=== PATIENT | female | born 1965 | race Caucasian/White ===

== ENCOUNTER 2016-11-07 18:17 | Emergency (ER) | payer MEDICAID, OTHER ==
[2016-11-07 18:25] VITALS: PULSE 84; TEMP 98.1
--- NOTE | 2016-11-07 18:34 | EDPHY ---
H & P Time Seen by Provider: 11/07/16 18:33 HPI/ROS: CHIEF COMPLAINT: Low back pain. HISTORY OF PRESENT ILLNESS: This patient is a 51 year old female with a history of MS who was referred to the Emergency Department by [facility] for an exacerbation of her chronic back pain secondary to falling on the ice today. She states that her back "seized up" while walking on ice; she then tried to correct her posture causing her to fall. She does not remember any details of the fall, including if she lost consciousness during the fall or if she hit her head. Upon arrival, she complains of moderate low back pain and pain to her right upper thigh. She also reports vision changes, dizziness, and bilateral forearm paresthesias. She believes that these neurological complaints began following the fall but is not entirely sure if that is the case. She denies headache or neck pain. No additional injuries from the fall. h/o MS, not taking medications (meds don't work for her), previously on stem cell transplant list. Paresthesias not typical of her MS, especially given rapid onset, though she is unsure. No prior MRI's at [facility] (all prior MRI's out of state). Ongoing LBP after an injury at work, seeing workman's comp doc, states the pain has been out of control recently. Not taking meds for LBP. REVIEW OF SYSTEMS: Constitutional: No weakness Eyes: +visual changes, no eye pain ENT: No dental trauma Neck: No pain or injury Respiratory: No shortness of breath Cardiac: No chest pain Gastrointestinal: No abdominal pain, no vomiting Back: +low back pain Genitourinary: No hematuria Musculoskeletal: +right lateral thigh pain Skin: No lacerations Neurological: +dizziness, +bilateral arm paresthesias, no headache Past Medical/Surgical History: Multiple sclerosis, chronic back pain. Social History: Moved to [place] in February; no local PCP. Smoking Status: Never smoked Physical Exam: General Appearance: Alert, no distress Head: Atraumatic Eyes: No conjunctival erythema, PERRLA, EOMI ENT, Mouth: No hemotympanum, no oral trauma, no bony tenderness Neck: Non-tender, full range of motion without pain Respiratory: No chest wall tenderness, lungs clear bilaterally Cardiovascular: Regular rate and rhythm Abdomen: Abdomen is soft and non tender Skin: No lacerations, no abrasions Back: No midline T/L/S tenderness, lumbar paraspinous tenderness Extremities: Pelvis is stable and nontender; no extremity tenderness or deformity, full range of motion without pain Neurological: A&Ox3, normal motor function, normal sensory exam, cranial nerves intact Psychiatric: Mood and affect normal Constitutional: Initial Vital Signs Temperature (C) 36.7 C 11/07/16 18:20 Heart Rate 84 11/07/16 18:20 Respiratory Rate 20 11/07/16 18:20 Blood Pressure 137/99 H 11/07/16 18:20 O2 Sat (%) 97 11/07/16 18:20 O2 Delivery Mode Room Air O2 (L/minute) 2 Allergies/Adverse Reactions: aspirin Allergy (Verified 11/07/16 18:26) latex Allergy (Verified 11/07/16 18:26) oxycodone HCl [From Percodan] Allergy (Verified 11/07/16 18:26) oxycodone terephthalate [From Percodan] Allergy (Verified 11/07/16 18:26) silicone Allergy (Verified 11/07/16 18:26) Home Medications: Medication Instructions Recorded DULoxetine 11/07/16 Hydrocodone/APAP 5/325 [[place] 1 - 2 tab PO Q4H PRN #10 tab 11/07/16 5/325] traZODone 11/07/16 Medical Decision Making - Diagnostics Imaging: Study: MRI of the brain and cervical spine without contrast Indication: Multiple neurological complaints Results: MRI of the brain and cervical spine was obtained. The results of the study are: multiple MS lesions; recommend MRI with contrast to determine relative age of lesions. The study was read by the radiologist, Dr. Cb Schulz. I viewed the images myself on the PACS system. Study: MRI of the cervical spine with contrast Indication: Multiple neurological complaints Results: MRI of cervical spine with contrast was obtained. The results of the study are: no acute changes from previous. The study was read by the radiologist , Dr. Cb Schulz. I viewed the images myself on the PACS system. Study: X-ray of the lumbar spine Indication: Pain, trauma Results: X-ray of the lumbar spine was obtained. The results of the study are: 1. No compression fracture or pars defect. 2. Moderate severe degenerative disk and facet arthropathy at L5-S1. The study was read by the radiologist, Dr. Cb Schulz. I viewed the images myself on the PACS system. ED Course/Re-evaluation: This pt presents with a constellation of symptoms, some subacute and others acute. She does not appear in pain, though she is quite anxious and talkative. I spent quite a bit of time trying to sort out the acuity of the problems, and their possible relationship to MS vs recent/remote trauma. Ultimately, I decided that I would be unable to sort this out, and decided that MRI of the brain +/- contrast, Cspine MRI and lumbar spine Xrays would give me sufficient information to make an informed decision today. I discussed with the patient the plan for MRI of the brain and c-spine and x-ray of the lumbar spine. 1 tab PO Hydrocodone administered for pain. 2010: Lumbar spine Xrays are negative for acute fx. The patient continues to complain of LBP pain and is unable to lay flat for an MRI secondary to her low back pain. IV was established. 6mg IV morphine administered. MRI obtained. 2199: I discussed imaging results with Dr. Schulz who recommends MRI with contrast of the cervical spine given the MS lesions seen on MRI without contrast. Will proceed with this additional study. 2234: I discussed imaging results with the patient. There is no evidence of active MS lesions and no evidence of fracture/hemorrhage related to recent fall. She was thankful for the thorough evaluation and will f/u with neurology and PCP. Referrals given, as she has not yet established a PCP or neurologist in [place]. - Data Points Medications Given: Discontinued Medications Acetaminophen/Hydrocodone Bitart ([place] 5/325) 1 tab PO EDNOW ONE Stop: 11/07/16 18:56 Last Admin: 11/07/16 19:07 Dose: 1 tab Acetaminophen/Hydrocodone Bitart ([place] 5/325mg Prepack#6) 1 btl TAKEHOME EDNOW ONE Stop: 11/07/16 22:42 Last Admin: 11/07/16 23:18 Dose: 1 btl Diazepam (Valium 5 Mg Prepack#4) 1 btl TAKEHOME EDNOW ONE Stop: 11/07/16 22:42 Last Admin: 11/07/16 23:16 Dose: 1 btl Diphenhydramine HCl (Benadryl Injection) 25 mg IVP EDNOW ONE Stop: 11/07/16 22:32 Last Admin: 11/07/16 22:37 Dose: 25 mg Morphine Sulfate (Morphine) 6 mg IVP EDNOW ONE Stop: 11/07/16 20:11 Last Admin: 11/07/16 20:20 Dose: 6 mg Ondansetron HCl (Zofran) 4 mg IVP EDNOW ONE Stop: 11/07/16 20:11 Last Admin: 11/07/16 20:25 Dose: 4 mg Departure - Departure Disposition: Home, Routine, Self-Care Clinical Impression: Paresthesia, Multiple sclerosis Low back pain Qualifiers: Qualifier Code: (M54.5) Low back pain Condition: Good Instructions: Hydrocodone/Acetaminophen (By mouth), Diazepam (By mouth), Low Back Strain (ED), Paresthesia (ED), Multiple Sclerosis (DC) Additional Instructions: 1. Take [place] every 4 hours as needed for pain. 2. Take Valium every 6 hours as needed for pain and to help with sleep. 3. Follow-up with a primary care provider to address your chronic pain and any additional symptoms that persist. 4. Return to the Emergency Department with new neurological symptoms including severe headache, vision loss, new or worsening numbness, or other serious concerns. Referrals: Kun Juarez MD [Medical Doctor] - As per Instructions Prescriptions: Hydrocodone/APAP 5/325 [[place] 5/325] 1 - 2 tab PO Q4H PRN #10 tab PRN Reason: Pain, Moderate Report Scribed for: Anabell Watkins Report Scribed by: Antoinette Sharp Date of Report: 11/07/16 Time of Report: 18:34 Physician Review and Approval Statement: 11/07/16 18:34 Portions of this note were transcribed by a medical records director. I personally performed a history, physical exam, medical decision making, and confirmed accuracy of information the transcribed note.
[2016-11-07] MEDS ORDERED: HYDROCODONE/APAP 5/325 TAB PO ONE (18:55)
--- NOTE | 2016-11-07 19:37 | DX ---
Lumbar Spine, Two Views 18:51 Hours Indication: Pain Comparison: None Technique: Upright AP and lateral views. Findings: Five nonrib-bearing lumbar vertebral bodies have minimal levocurvature apex at L3. Moderat e to severe degenerative disk disease and facet arthropathy is present at L5-S1. No compression fract ure or pars defect. Remainder the disk spaces are relatively well-preserved. Impression: 1. No compression fracture or pars defect. 2. Moderate severe degenerative disk and facet arthropathy at L5-S1.
[2016-11-07] MEDS ORDERED: ONDANSETRON 4 MG/2 ML VIAL IVP ONE (20:10)
[2016-11-07] MEDS ORDERED: GADOBUTROL 10 ML VIAL IVP ONE (21:01)
[2016-11-07] MEDS ORDERED: HYDROCOD/APAP 5/325 PREPACK#6 BTL TAKEHOME ONE (22:41)
[2016-11-07] MEDS ORDERED: DIAZEPAM 5 MG PREPACK#4 BTL TAKEHOME ONE (22:41)
--- NOTE | 2016-11-07 22:52 | MR ---
MRI of the Brain (Without and With Contrast) Indication: Bilateral arm numbness. Recently fell on ice. History of multiple sclerosis. Technique: T1-weighted images were acquired axially and sagittally from the foramen magnum to the ve rtex. Axial fast inversion-recovery, fast T2-weighted, susceptibility, and diffusion-weighted axial images were obtained, without contrast. Postcontrast axial and coronal images, with the uneventful i ntravenous administration of 10 mL Gadavist contrast. Comparison: No prior imaging for comparison. Findings: Moderate volume of hyperintense periventricular and subcortical white matter disease is pr esent throughout the bilateral frontal, parietal, posterior temporal lobes, and bilateral thalami on the FLAIR and T2-weighted sequences. No enhancement of the white matter lesions on the postcontrast imaging. No white matter lesions within the cerebellum. Diffusion-weighted imaging is normal. No evidence of acute ischemia. No acute intracranial hemorrha ge, subdural hematoma, or hemosiderin deposition. The ventricular system is normal caliber and midli ne. The sagittal sinus and basivertebral arteries have normal black flow void on T2-weighted imaging and normally enhance on the postcontrast sequence. No abnormal enhancement of the leptomeninges or dura. The paranasal sinuses are clear. The orbits are normal. The bone marrow signal is normal. IMPRESSION: 1. Moderate volume of periventricular and subcortical white matter disease consistent with the patie nt's history of multiple sclerosis. No evidence of active demyelinating plaque. 2. No acute intracranial hemorrhage or evidence of ischemia. Comment: Results were discussed with Dr. Anabell Watkins at 10:30 p.m. on November 07, 2016.
--- NOTE | 2016-11-07 23:20 | MR ---
MRI Cervical Spine, Without and Without IV Contrast Indication: Bilateral arm numbness. Recent fall on ice. History of multiple sclerosis. Technique: Sagittal and coronal T2, sagittal T1, FLAIR, and postcontrast sagittal FLAIR and T1 postc ontrast sequences. Stacked axial T2 and T1 postcontrast sequences are obtained through the cervical spine. 10 mL of Gadavist was uneventfully intravenously administered. Comparison: None. Findings: The cervical spinal cord has extensive multifocal mildly hyperintense white matter disease throughout the central and dorsal lateral aspect of the cord from the level of C2 to T3. No abnorma l enhancement on the postcontrast imaging to suggest active demyelination. No spinal cord atrophy. The spinal canal is capacious. No cord compression at any level. The cervicooccipital junction is normal. Bone marrow signal is normal. No compression fracture or b one lesion. The paraspinal soft tissues are normal. The anterior and posterior longitudinal ligamen ts, ligamentum flavum, and interspinous ligament have normal signal. No evidence of ligamentous tear or paraspinal fluid collection. C2-C3: Widely patent central canal and neural foramina. Minimal disk desiccation. C3-C4: Disk desiccation and minimal broad-based disk bulge results in minimal acquired central canal narrowing. Facet hypertrophy results in mild bilateral neural foraminal stenosis. C4-C5: Widely patent central canal and neural foramina. Minimal disk dessication. C5-C6: Widely patent central canal and neural foramina. Minimal disk dessication and minimal solderer assembler ior disk bulge results in minimal acquired central canal narrowing. C6-C7: Widely patent central canal and neural foramina. Minimal disk dessication. C7-T1: Widely patent central canal and neural foramina. Minimal disk desiccation. Small bilateral perineural sheath cysts are present in the neural foramina. Impression: 1. Extensive white matter disease throughout the cervical spinal cord consistent with multiple scler osis. No evidence of active demyelination. 2. Widely patent central canal. No acute disk herniation or evidence of ligamentous injury. 3. Bilateral neural foraminal stenosis at C3-C4 due to osteophyte disk complex. Comment: Results were discussed with Dr. Anabell Watkins on November 07, 2016.
[2016-11-07 23:49] VITALS: BP 135/80; RESP 16; O2SAT 97
== END 2016-11-07 23:50 | disposition home or self-care (01) ==
DX: M54.5 Low back pain (principal); G35 Multiple sclerosis; R20.2 Paresthesia of skin; Z91.040 Latex allergy status
CPT/HCPCS: 96374; A9585; J1200; J2405

== ENCOUNTER → 2017-08-06 | Outpatient (CLI) | payer OTHER, MEDICARE | LOC: CIMAGING 13:00 | PROVIDERS: ATTEND Family Medicine | DX: R05 Cough (principal) | CPT/HCPCS: 71020-PO ==

== ENCOUNTER 2017-11-08 12:32 | Emergency (ER) | payer OTHER, MEDICARE ==
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
[2017-11-08 13:30] LABS: PLATELET COUNT 261 10^3/uL (150-400)
[2017-11-08] MEDS ORDERED: LORAZEPAM 1 MG PREPACK#4 BTL TAKEHOME ONE (18:48)
[2017-11-08 19:51] VITALS: BP 123/84; PULSE 82; RESP 16; TEMP 98.1; O2SAT 97
== END 2017-11-08 19:20 | disposition home or self-care (01) ==
DX: F44.9 Dissociative and conversion disorder, unspecified (principal); F43.10 Post-traumatic stress disorder, unspecified; Z91.040 Latex allergy status
CPT/HCPCS: 80305

== ENCOUNTER → 2018-03-05 | Outpatient (CLI) | payer OTHER, MEDICARE | LOC: FCPNEURO 21:00 | PROVIDERS: ATTEND Internal Medicine Sleep Medicine | DX: G47.33 Obstructive sleep apnea (adult) (pediatric) (principal); G47.37 Central sleep apnea in conditions classified elsewhere; G47.61 Periodic limb movement disorder ==

== ENCOUNTER → 2018-03-12 | Outpatient (CLI) | payer OTHER, MEDICARE | LOC: CIMAGING 11:54 | PROVIDERS: ATTEND Family Medicine | DX: M79.671 Pain in right foot (principal) | CPT/HCPCS: 73630-PO ==

== ENCOUNTER → 2018-07-04 | Outpatient (CLI) | payer OTHER, MEDICARE | LOC: CIMAGING 15:02 | PROVIDERS: ATTEND Family Medicine | DX: M54.6 Pain in thoracic spine (principal); G35 Multiple sclerosis; Z91.81 History of falling | CPT/HCPCS: 72070-PO ==

== ENCOUNTER → 2018-08-27 | Outpatient (CLI) | payer OTHER, MEDICARE ==
[~2018-08-27] MED LIST: GADOBUTROL 10 ML VIAL IVP ONE
== END ==
LOC: FIMAGING 12:01
PROVIDERS: ATTEND Psychiatry & Neurology Neurology
DX: M50.31 Other cervical disc degeneration, high cervical region (principal); M50.321 Other cervical disc degeneration at C4-C5 level; M50.322 Other cervical disc degeneration at C5-C6 level; M50.323 Other cervical disc degeneration at C6-C7 level; M48.061 Spinal stenosis, lumbar region without neurogenic claudication; M99.73 Connective tissue and disc stenosis of intervertebral foramina of lumbar region; M51.37 Other intervertebral disc degeneration, lumbosacral region; M12.88 Other specific arthropathies, not elsewhere classified, other specified site; M51.26 Other intervertebral disc displacement, lumbar region; G35 Multiple sclerosis
CPT/HCPCS: 72148; 72156; A9585

== ENCOUNTER 2018-10-01 13:50 | Emergency (ER) | payer OTHER, MEDICARE ==
--- NOTE | 2018-10-01 14:22 | EDPHY ---
H & P Time Seen by Provider: 10/01/18 14:06 HPI/ROS: CHIEF COMPLAINT: Bilateral knee pain HISTORY OF PRESENT ILLNESS: Patient was in [place] visiting her mother this past Sunday on September 29 when she got out of the shower and slipped doing the splits and hitting her knees on the floor. Her left knee hurt more than the right. Her right knee has a history of multiple orthopedic surgeries and meniscal problem. She had x-ray two view of her left knee and was given a splint and referred back to [place]. She says the pain is not adequately controlled by the naproxen which she is prescribed. She says she has taken Vicodin before she is the only narcotic which she can tolerate. She denies weakness or numbness in either foot, ankle or hip pain, skin rash or laceration. REVIEW OF SYSTEMS: Otherwise negative PAST MEDICAL HISTORY: Includes back injury in July of 2016, multiple sclerosis Social history: Primary care doctor is Windy Arnold General Appearance: Alert and conversant, cooperative. Normal range of motion of both hips, compartments are soft in both thighs, no femoral tenderness. Bilateral distal motor sensory and vascular intact. Compartments intact in both lower legs. Right knee: Full range of motion actively and passively, some medial joint line tenderness, no effusion, stable to varus and valgus stress, normal anterior and posterior drawer. Jaylen's negative. Left knee: Full range of motion actively and passively, pain with varus and valgus stress and with Rosa Maria on medial and lateral meniscus, Jaylen's negative, stable to varus and valgus stress, normal anterior and posterior drawer. No effusion. No patellar tenderness. Emergency Department course/MDM: Bilateral 4-view standard knee x-rays. 11 Vicodin. Orthopedic follow-up this week. Knee brace for the left knee which is the worse 1 as far symptoms. Patient says she is in agreement and satisfied with this plan. 1443: X-rays personally reviewed both knees are negative for fracture or dislocation. Reviewed with the patient personally in the computer system. 1510: Ambulatory with knee brace and cane out of the department. Smoking Status: Never smoked Constitutional: Initial Vital Signs Temperature (C) 36.8 C 10/01/18 14:00 Heart Rate 87 10/01/18 14:00 Respiratory Rate 18 10/01/18 14:00 Blood Pressure 126/62 H 10/01/18 14:00 O2 Sat (%) 98 10/01/18 14:00 O2 Delivery Mode Room Air Allergies/Adverse Reactions: aspirin Allergy (Verified 10/01/18 13:59) latex Allergy (Verified 10/01/18 13:59) oxycodone HCl [From Percodan] Allergy (Verified 10/01/18 13:59) oxycodone terephthalate [From Percodan] Allergy (Verified 10/01/18 13:59) silicone Allergy (Verified 10/01/18 13:59) narcotics Allergy (Uncoded 10/01/18 14:00) Home Medications: Medication Instructions Recorded Hydrocodone/Acetaminophen [Vicodin 1 each PO Q6 #11 tablet 10/01/18 5-300 mg Tablet] VENLAFAXINE HCL 10/01/18 traZODone 10/01/18 MDM/Departure - MDM Imaging Results: Imaging Impressions Knee X-Ray 10/01/18 14:21 Impression: Nothing acute identified. Knee X-Ray 10/01/18 14:21 Impression: Nothing acute identified. Imaging: I viewed and interpreted images myself - Depart Disposition: Home, Routine, Self-Care Clinical Impression: Bilateral knee pain Condition: Good Instructions: Knee Pain (ED) Additional Instructions: Follow-up with referral orthopedic surgeon this week in the office. Tell the office you are a referral from the emergency department. Prescriptions: Hydrocodone/Acetaminophen [Vicodin 5-300 mg Tablet] 1 each PO Q6 #11 tablet Referrals: Cb Rosas MD [Medical Doctor] - As per Instructions
[2018-10-01 15:11] VITALS: BP 124/60
== END 2018-10-01 15:11 | disposition home or self-care (01) ==
DX: S89.92XA Unspecified injury of left lower leg, initial encounter (principal); S89.91XA Unspecified injury of right lower leg, initial encounter; W01.0XXA Fall on same level from slipping, tripping and stumbling without subsequent striking against object, initial encounter; Y92.002 Bathroom of unspecified non-institutional (private) residence as the place of occurrence of the external cause; Y93.9 Activity, unspecified; Y99.9 Unspecified external cause status
CPT/HCPCS: 73564; 99284; L1830

== ENCOUNTER 2019-03-07 13:11 | Emergency (ER) | payer OTHER ==
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
[2019-03-07] MEDS ORDERED: NAPROXEN SODIUM 220 MG TAB PO ONE (14:19)
[2019-03-07 15:23] VITALS: BP 121/78
== END 2019-03-07 15:22 | disposition home or self-care (01) ==
DX: S06.0X0A Concussion without loss of consciousness, initial encounter (principal); S20.211A Contusion of right front wall of thorax, initial encounter; S30.1XXA Contusion of abdominal wall, initial encounter; S60.222A Contusion of left hand, initial encounter; V49.49XA Driver injured in collision with other motor vehicles in traffic accident, initial encounter; Y92.410 Unspecified street and highway as the place of occurrence of the external cause